=== PATIENT | male | born 1955 | race Caucasian/White ===

== ENCOUNTER 2019-07-31 07:29 | Day surgery (SDC) | payer MEDICARE ==
[~2019-07-31] VITALS: Ht 180.3 cm; Wt 82.6 kg
[~2019-07-31 07:29] MED LIST: LIPITOR20 MG PO; MELOXICAM7.5 MG PO; MULTI VIT PO
[2019-07-31 10:40] VITALS: BP 138/77
== END 2019-07-31 10:48 | disposition home or self-care (01) ==
LOC: ENDO 07:29 → ORM 08:30 → ENDO 09:05
PROVIDERS: ATTEND Internal Medicine Gastroenterology
PROC: 0DBK8ZX Excision of Ascending Colon, Via Natural or Artificial Opening Endoscopic, Diagnostic (ICD-10-PCS; principal; 2019-07-31)
PROC: 3E0H8GC Introduction of Other Therapeutic Substance into Lower GI, Via Natural or Artificial Opening Endoscopic (ICD-10-PCS; 2019-07-31)
DX: D12.2 Benign neoplasm of ascending colon (principal); K57.31 Diverticulosis of large intestine without perforation or abscess with bleeding; K64.4 Residual hemorrhoidal skin tags; K64.8 Other hemorrhoids